=== PATIENT | male | born 1960 | race Caucasian/White ===

== ENCOUNTER 2016-12-18 11:14 | Emergency (ER) | payer BC ==
[2016-12-18 11:19] VITALS: BP 129/78; PULSE 94; RESP 18; TEMP 97.7; O2SAT 100
--- NOTE | 2016-12-18 12:09 | C.PDOC ---
History Of Present Illness 56 y/o male presents to the ED c/o pain to the left great toe. The patient last night was at work and a pipe fell and landed on his toe of the left foot. The patient has not been taking medication for the pain , but has been doing a home remedy of salt and lemon to alleviate the pain. The patient denies fever, chills, dizziness, and deformity. , Time Seen by Provider: 12/18/16 11:22 Chief Complaint (Nursing): Lower Extremity Problem/Injury History Per: Patient History/Exam Limitations: no limitations Onset/Duration Of Symptoms: Days Current Symptoms Are (Timing): Still Present Pain Scale Rating Of: 10 (associated swelling) Past Medical History Reviewed: Historical Data, Nursing Documentation, Vital Signs Vital Signs: Last Vital Signs Temp 97.7 F 12/18/16 11:18 Pulse 94 H 12/18/16 11:18 Resp 18 12/18/16 11:18 BP 129/78 12/18/16 11:18 Pulse Ox 100 12/18/16 12:51 - Medical History PMH: Depression Surgical History: No Surg Hx Family History: States: Unknown Family Hx - Social History Hx Tobacco Use: Yes Hx Alcohol Use: Yes Hx Substance Use: No - Immunization History Hx Tetanus Toxoid Vaccination: No Hx Influenza Vaccination: No Hx Pneumococcal Vaccination: No Review Of Systems Except As Marked, All Systems Reviewed And Found Negative. Constitutional: Negative for: Fever, Chills Cardiovascular: Negative for: Light Headedness Musculoskeletal: Positive for: Foot Pain (Left great toe ) Physical Exam - Physical Exam Appears: Non-toxic, No Acute Distress Skin: Warm Head: Atraumatic, Normacephalic Oral Mucosa: Moist Neck: Supple Respiratory: Normal Breath Sounds Extremity: Tenderness, Pedal Edema, Capillary Refill (<2sec.), Swelling (to the entire first digit of left side of the foot ) Neurological/Psych: Oriented x3, Normal Speech, Normal Cognition Gait: Steady ED Course And Treatment O2 Sat by Pulse Oximetry: 100 (RA) Progress Note: The patient was administered Motrin and Tylenol. A foot X -ray was taken there is a tuft fracture on the left foot . The foot was dressed with a gauze and an orthopedic boot. Upon, reevalaution, the patient has improved and is advised to have a follow up with Orthopedic Physician. Disposition Counseled Patient/Family Regarding: Studies Performed, Diagnosis - Disposition Disposition: HOME/ ROUTINE Disposition Time: 12:07 Condition: STABLE Additional Instructions: Take medication for pain. Rest, ice the foot. Follow up with your workman's compensation doctors for further evaluation. [place] [employer] para el dolor. Descanse y eleve el pies , pongase hielo en el pie. Siga con los mdicos de compensacin de love trabajador para orly evaluacin m s. Prescriptions: Ibuprofen [Motrin] 600 mg PO TID #15 tab Instructions: RICE Therapy (ED) Forms: Gen Discharge Inst Syriac, Work Excuse - POA Present On Arrival: None - Clinical Impression Clinical Impression: Fracture of left great toe - Scribe Statement The provider has reviewed the documentation as recorded by the Scribimelda Sparrow All medical record entries made by the Scribe were at my direction and personally dictated by me. I have reviewed the chart and agree that the record accurately reflects my personal performance of the history, physical exam, medical decision making, and the department course for this patient. I have also personally directed, reviewed, and agree with the discharge instructions and disposition.
--- NOTE | 2016-12-18 14:19 | RAD ---
PROCEDURE: Left Foot Radiographs. HISTORY: pipe fell on foot COMPARISON: None. FINDINGS: BONES: There is acute nondisplaced fracture at the tip of the distal phalanx/tuft of the big toe. JOINTS: Mild arthritic degenerative changes. SOFT TISSUES: Punctate high density seen in the soft tissue at the toes of uncertain etiology. OTHER FINDINGS: None. IMPRESSION: Acute nondisplaced fracture at the distal portion of the distal phalanx left big toe.
== END 2016-12-18 12:20 | disposition home or self-care (01) ==
LOC: C.ER 11:14
DX: S92.425A Nondisplaced fracture of distal phalanx of left great toe, initial encounter for closed fracture (principal); W22.8XXA Striking against or struck by other objects, initial encounter; Y92.89 Other specified places as the place of occurrence of the external cause; Y99.0 Civilian activity done for income or pay